=== PATIENT | male | born 1965 | race Caucasian/White ===

== ENCOUNTER → 2023-05-05 | Outpatient (CLI) | payer OTHER ==
--- NOTE | 2023-05-05 11:37 | US ---
EXAMINATION TYPE: US abdomen complete DATE OF EXAM: 05/05/2023 COMPARISON: NONE CLINICAL INDICATION: Male, 57 years old with history of R10.9 ABD PAIN; pain gb removed x 2 years ago TECHNIQUE: Multiple sonographic images of the abdomen are obtained. FINDINGS: EXAM MEASUREMENTS: Liver Length: 17.4 cm Gallbladder Wall: Surgically absent CBD: 1.3 cm Spleen: 13.1 cm Right Kidney: 8.9 x 3.8 x 4.9 cm Left Kidney: 10.5 x 4.8 x 5.0 cm [employer] MACHINE OPERATOR NOTES: Pancreas: Obscured by bowel gas Liver: Increased attenuation anechoic area seen 3.4 x 1.7 x 3.5 cm CBD: wnl Gallbladder: Surgically absent Spleen: wnl Right Kidney: wnl Left Kidney: anechoic area upper pole 1.2 x 1.2 x 1.4 cm. Upper IVC: wnl Abd Aorta: wnl The liver demonstrates diffuse increased attenuation. Simple cyst is identified measuring up to 3.4 c m.. The intrahepatic portion of the IVC and proximal abdominal aorta are within normal limits. The g allbladder is surgically absent. The common bile duct is unremarkable. The pancreas is obscured by o verlying bowel gas. The spleen is unremarkable. Kidneys are symmetric and free of hydronephrosis. No nephrolithiasis. Left upper pole renal simple cyst. IMPRESSION: 1. No acute process. 2. Postcholecystectomy changes. 3. Left hepatic simple cyst and left renal cyst. 4. Hepatic steatosis.
== END | disposition home or self-care (01) ==
LOC: RADUSWWP 10:21
PROVIDERS: ATTEND Internal Medicine Geriatric Medicine
DX: K76.89 Other specified diseases of liver (principal); N28.1 Cyst of kidney, acquired; K76.0 Fatty (change of) liver, not elsewhere classified; Z90.49 Acquired absence of other specified parts of digestive tract
CPT/HCPCS: 76700

== ENCOUNTER → 2023-09-07 | Outpatient (CLI) | payer OTHER ==
--- NOTE | 2023-09-07 11:30 | XR ---
EXAMINATION TYPE: XR chest 2V DATE OF EXAM: 09/07/2023 COMPARISON: NONE HISTORY: Cough TECHNIQUE: Frontal and lateral views of the chest are obtained. FINDINGS: Possible mild underlying emphysematous change on lateral view. There is no focal air space opacity, pleural effusion, or pneumothorax seen. The cardiac silhouette size is within normal limits . The osseous structures are intact. Overlying left-sided metallic nipple ornament. IMPRESSION: No acute pulmonary infiltrate.
--- NOTE | 2023-09-07 11:32 | XR ---
EXAMINATION TYPE: XR foot complete LT DATE OF EXAM: 09/07/2023 CLINICAL HISTORY: [id number] PAIN IN L great TOE TECHNIQUE: Frontal, lateral, and oblique images of the left foot are obtained. COMPARISON: None FINDINGS: There is no acute fracture/dislocation evident in the left foot with particular attention to the first toe. Flexion and the second through fifth toes makes evaluation of this level slightly s uboptimal. The joint spaces in the left foot appear within normal limits. Mild diffuse subcutaneous edema laterally is noted. IMPRESSION: As above.
== END | disposition home or self-care (01) ==
LOC: RADXRMAIN 11:14
PROVIDERS: ATTEND Nurse Practitioner Family
DX: M79.675 Pain in left toe(s) (principal); R05.9 Cough, unspecified; R60.0 Localized edema
CPT/HCPCS: 71046